=== PATIENT | male | born 1960 | race Hispanic/Latino ===

== ENCOUNTER 2017-06-06 20:22 | Emergency (ER) | payer OTHER ==
[~2017-06-06] VITALS: Ht 170.2 cm; Wt 109.5 kg
[2017-06-06 21:08] LABS: MCH 30.8 PG (29.0-34.0); MCHC 34.8 G/DL (30.0-36.0); MCV 88.7 FL (86-99); MEAN PLAT.VOLUME 8.5 uM^3 (9.0-12.4); PLATELET COUNT 242 K/uL (156-360); RBC DIS.WIDTH-CV 12.4 % (11.8-14.6); RBC DIS.WIDTH-SD 40.6 % (39-53); RED BLOOD COUNT 4.51 M/uL (4.00-5.50); WHITE BLOOD COUNT 7.6 K/uL (4.1-10.2)
[2017-06-06 21:16] LABS: PROTHROMBIN TIME 10.7 SEC (10.2-12.9)
[2017-06-06 21:18] LABS: D-DIMER ELISA < 150.00 ng/mLDDU (<230); PTT 27.5 SEC (25-37)
[2017-06-06 21:26] LABS: CHLORIDE 102 mEq/L (99-109); POTASSIUM 3.8 mEq/L (3.7-5.4); SODIUM 135 mEq/L (136-147)
[2017-06-06 21:28] LABS: GLUCOSE 94 mg/dL (70-99)
[2017-06-06 21:29] LABS: ANION GAP 12 MEQ/L (2-14); TROP-I INTERPRETATION NEGATIVE; TROPONIN-I < 0.01 ng/mL (0.0-0.30)
[2017-06-06 21:31] LABS: GFR ESTIMATE (CALCULATED) > 59 mL/min/
[2017-06-06 21:32] LABS: UREA NITROGEN (BUN) 15 mg/dL (9-23)
[2017-06-06] MEDS ORDERED: PRINIVIL10 MG PO (22:33)
[2017-06-06 23:00] LABS: TROP-I INTERPRETATION NEGATIVE; TROPONIN-I < 0.01 ng/mL (0.0-0.30)
[2017-06-06 23:06] VITALS: BP 187/118
== END 2017-06-06 23:07 | disposition home or self-care (01) ==
LOC: EME 20:22 → EDBD 20:22 → EME 23:07
PROVIDERS: Emergency Medicine
DX: R07.9 Chest pain, unspecified (principal); I10 Essential (primary) hypertension; R19.7 Diarrhea, unspecified; R42 Dizziness and giddiness; R06.02 Shortness of breath; M25.512 Pain in left shoulder; M79.602 Pain in left arm; Z82.49 Family history of ischemic heart disease and other diseases of the circulatory system; F17.200 Nicotine dependence, unspecified, uncomplicated
CPT/HCPCS: 71020; 80048; 84484; 85027; 85379; 85610; 85730; 93005; 99281; 99284